=== PATIENT | male | born 1990 | race Caucasian/White ===

== ENCOUNTER 2017-05-02 19:47 | Emergency (ER) | payer OTHER ==
[~2017-05-02] VITALS: Ht 177.8 cm; Wt 79.4 kg
[2017-05-02 21:11] VITALS: BP 122/80
[2017-05-02] MEDS ORDERED: LEVOFLOXACIN 500 MG TAB PO ONE (21:15)
[2017-05-02 21:58] LABS: Urine RBC None Seen /hpf (0 - 3)
[2017-05-02 22:05] LABS: Urine Bilirubin Negative (Negative); Urine Blood Negative /uL (Negative); Urine Color Yellow (Yellow); Urine Glucose Normal (Normal); Urine Ketone Negative (Negative); Urine Nitrite Negative (Negative); Urine Urobilinogen Normal (Negative); Urine pH 6.5 (5.0-8.0)
[2017-05-06 13:43] LABS: Hepatitis B Surface Antibody Positive
== END 2017-05-02 21:34 | disposition home or self-care (01) ==
LOC: ER 19:47
DX: Z77.21 Contact with and (suspected) exposure to potentially hazardous body fluids (principal); Z88.8 Allergy status to other drugs, medicaments and biological substances
CPT/HCPCS: 36415; 81001; 86703; 86706; 86803; 87340